=== PATIENT | female | born 1960 | race Caucasian/White ===

== ENCOUNTER 2017-04-19 13:37 | Emergency (ER) | payer OTHER ==
[2017-04-19 13:53] VITALS: BP 125/75; PULSE 70; RESP 18; TEMP 97.9; O2SAT 96
--- NOTE | 2017-04-19 15:01 | EDPHY ---
H & P Stated Complaint: Skin laceration, chin Time Seen by Provider: 04/19/17 14:54 HPI/ROS: HPI CHIEF COMPLAINT: Right lower facial laceration sustained by dog bite HISTORY OF PRESENT ILLNESS: This patient 57-year-old female, she tells me her tetanus shot is up-to-date, she is otherwise healthy she presents emergency room after she states that her dog accidentally bit her in the face. She states that she is really unsure if he actually bit her or more right anterior face with an open mouth. Sustained a right lower facial laceration 3 cm non gaping. No other injuries. Past Medical History: Denies significant medical history except thyroid disease Past Surgical History: No surgical history Social History: Lives locally, denies drugs alcohol tobacco. Family History: Noncontributory ROS REVIEW OF SYSTEMS: A comprehensive 10 point review of systems is otherwise negative aside from elements mentioned in the history of present illness. Exam Constitutional appears well nontoxic triage nursing summary reviewed, vital signs reviewed, awake/alert. Eyes normal conjunctivae and sclera, EOMI, PERRLA. HENT face: 3 cm year vertically oriented right lower facial laceration that is below her right lateral lower lip. Somewhat gaping 0.5CM Does not involve the lip. normal inspection, atraumatic, moist mucus membranes, no epistaxis, neck supple/ no meningismus, no raccoon eyes. Respiratory clear to auscultation bilaterally, normal breath sounds, no respiratory distress, no wheezing. Cardiovascular rate normal, regular rhythm, no murmur, no edema, distal pulses normal. Gastrointestinal soft, non-tender, no rebound, no guarding, normal bowel sounds, no distension, no pulsatile mass. Genitourinary no CVA tenderness. Musculoskeletal no midline vertebral tenderness, full range of motion, no calf swelling, no tenderness of extremities, no meningismus, good pulses, neurovascularly intact. Skin pink, warm, & dry, no rash Neurologic awake, alert and oriented x 3, AAOx3, moves all 4 extremities equally, motor intact, sensory intact, CN II-XII intact, normal cerebellar, normal vision, normal speech. Psychiatric normal mood/affect. Heme/Lymph/Immune no lymphadenopathy. Differential Diagnosis: Includes but is not limited to in a particular order: Facial laceration, soft tissue injury, dog bite Medical Decision Making: Discussed at length risk versus benefit about repair of this dog bite. She understands that we typically do not suture dog bites closed as the high risk for infection however it is on her face and she states she wants to most cosmetic appropriate care. Given the size of the laceration I do recommend that we repair this but is at risk for infection. Will place her on Augmentin. She is fine with this. She understands to watch closely for signs of infection. Laceration Repair Procedure: Verbal Consent was obtained, Under sterile conditions, The patient had lidocaine with epinephrine used approximately 3 ccs to local anesthetize the 3cm Laceration. The wound was copiously irrigated with sterile fluid, the wound was explored for foreign bodies there were none visualized, the wound was explored with a sterile glove to the base. There are no deep structures involved, including no arterial injury. TWO interrupted 6.O PROLENE Sutures were placed in this patient's laceration. He had good close approximation of the wound edges. He Tolerated this well. Re-evaluation: 1518: Patient tolerated laceration repair very well. She had good approximation wound edges. She understands to have her sutures out in 7 days. Watch closely for infection. The reason we chose to suture her dog bite laceration closed as it was somewhat gaping and on her face it is a cosmetic issue. She understands the risk of having this laceration closed by sutures given its dog bite. Augmentin prescription provided. Return precautions provided She understands to have her sutures out 7 days. Source: Patient - Personal History Current Tetanus/Diphtheria Vaccine: Yes Current Tetanus Diphtheria and Acellular Pertussis (TDAP): Yes - Medical/Surgical History Hx Asthma: No Hx Chronic Respiratory Disease: No Hx Diabetes: No Hx Cardiac Disease: No Hx Renal Disease: No Hx Cirrhosis: No Hx Alcoholism: No Hx HIV/AIDS: No Hx Splenectomy or Spleen Trauma: No Other PMH: PMH: denies - Social History Smoking Status: Never smoked Constitutional: Initial Vital Signs Temperature (C) 36.6 C 04/19/17 13:49 Heart Rate 70 04/19/17 13:49 Respiratory Rate 18 04/19/17 13:49 Blood Pressure 125/75 H 04/19/17 13:49 O2 Sat (%) 96 04/19/17 13:49 O2 Delivery Mode Room Air Allergies/Adverse Reactions: No Known Allergies Allergy (Unverified 04/19/17 13:53) Home Medications: Medication Instructions Recorded Amoxicillin/Clavulanate Pot 875 mg PO BID #14 tab 04/19/17 [Augmentin 875 MG TAB (*)] Zoloft 50mg (*) 04/19/17 Departure - Departure Disposition: Home, Routine, Self-Care Clinical Impression: Dog bite Qualifiers: Encounter type: initial encounter Qualified Code(s): W54.0XXA - Bitten by dog, initial encounter Facial laceration Qualifiers: Encounter type: initial encounter Qualified Code(s): S01.81XA - Laceration without foreign body of other part of head, initial encounter Condition: Good Instructions: Animal Bite (ED), Care For Your Stitches (ED), Laceration (ED) Additional Instructions: 1. Watch closely for signs of infection this includes redness, drainage, abnormal swelling, fever worsening pain. 2. Your sutures need to be removed in 7 days. 3. Please take antibiotic as prescribed. Take this with food. Prescriptions: Amoxicillin/Clavulanate Pot [Augmentin 875 MG TAB (*)] 875 mg PO BID #14 tab
== END 2017-04-19 15:28 | disposition home or self-care (01) ==
PROC: 0HQ1XZZ Repair Face Skin, External Approach (ICD-10-PCS; principal; 2017-04-19)
DX: S01.81XA Laceration without foreign body of other part of head, initial encounter (principal); W54.0XXA Bitten by dog, initial encounter; Y99.8 Other external cause status

== ENCOUNTER → 2018-05-26 | Outpatient (CLI) | payer OTHER | LOC: FIMAGING 14:56 | PROVIDERS: ATTEND Nurse Practitioner Adult Health | DX: Z12.31 Encounter for screening mammogram for malignant neoplasm of breast (principal) ==